=== PATIENT | female | born 1975 | race Caucasian/White ===

== ENCOUNTER → 2019-05-07 | Outpatient (CLI) | payer OTHER ==
[2004-11-12 17:08] VITALS: TEMP 98
== END ==
LOC: MC.RAD 08:21
DX: N60.01 Solitary cyst of right breast (principal)
CPT/HCPCS: G0279

== ENCOUNTER → 2021-07-17 | Outpatient (CLI) | payer OTHER ==
[2004-11-12 17:08] VITALS: TEMP 98
== END ==
LOC: MC.RAD 05-24 11:45
DX: Z12.31 Encounter for screening mammogram for malignant neoplasm of breast (principal)

== ENCOUNTER → 2023-07-23 | Outpatient (CLI) | payer OTHER ==
[2004-11-12 17:08] VITALS: TEMP 98
== END ==
LOC: MC.RAD 14:25
DX: Z12.31 Encounter for screening mammogram for malignant neoplasm of breast (principal)